=== PATIENT | male | born 1945 | race Caucasian/White ===

== ENCOUNTER 2019-06-10 09:21 | Day surgery (SDC) | payer OTHER ==
[2019-05-31 11:18] LABS: URINE BILIRUBIN NEGATIVE (Negative); URINE BLOOD NEGATIVE (Negative); URINE CLARITY CLEAR; URINE COLOR YELLOW; URINE GLUCOSE-RANDOM* NEGATIVE (Negative); URINE KETONES NEGATIVE (Negative); URINE LEUKOCYTES-REFLEX NEGATIVE (Negative); URINE NITRITE-REFLEX NEGATIVE (Negative); URINE PROTEIN (DIPSTICK) NEGATIVE (Negative)
[2019-05-31 11:19] LABS: HEMOGLOBIN 14.8 gm/dL (14.0-18.0); MCH 29.4 pg (26.0-34.0); MCHC 33.7 g/dL (28.0-37.0); MCV 87.3 fL (80.0-100.0); RBC 5.04 mil/uL (4.50-6.00); RDW 13.1 % (10.5-14.5); WBC 7.1 thou/uL (4.0-11.0)
[2019-05-31 11:48] LABS: ALBUMIN 4.1 g/dL (3.4-5.0); CALCIUM 9.2 mg/dL (8.5-10.1); POTASSIUM 4.4 mmol/L (3.5-5.1)
[2019-06-01 00:09] LABS: GLYCOHEMOGLOBIN (HGB A1C) 7.2 % (4.8-5.6)
[~2019-06-10] VITALS: Ht 177.8 cm; Wt 91.6 kg
[~2019-06-10 09:21] MED LIST: ALTACE2.5 MG PO; ASA81BEC PO; CRESTOR5 MG PO; GLUCOPHAGE XR750 M1 PO; LANTUS SUBQ; OZEMPIC0.25 MG/0. SUBQ; PLAVIX 75 MG TA75 MG PO; PROTONIX40 M2 PO; RAMIPRIL2.5 MG PO; TOPROL XL25 MG PO; VITAMIN D325 MC2 PO; ZETIA10 MG PO
[2019-06-10 10:30] VITALS: BP 141/85
[2019-06-10 16:07] VITALS: BP 119/79
[2019-06-10 19:20] VITALS: BP 90/58
--- NOTE | 2019-06-11 04:54 | NUR ---
ASSESSMENT COMPLETED.PT C/O PAIN ON HIS R KNEE,MANAGED WITH MED X1.PT UP TO THE BR TO VOID.PT ABLE TO REPOSITION SELF IN BED.PT'S REQUESTED FOR PT TO SLEEP WITH CPAP,RT NOTIFIED,PT REF THE CPAP WHEN RT CAME BY.PT ON 2.5L/NC.PT RESTING COMFORTABLY ON HIS BED AT THIS TIME.FALL PRECAUTIONS IN PLACE,CALL LIGHT WITHIN REACH.
[2019-06-11 05:13] VITALS: BP 100/61
[2019-06-11 06:28] LABS: ABSOLUTE NEUTROPHILS 5.1 thou/uL (1.4-8.2); BASOPHILS 0.1 % (0.0-2.0); EOSINOPHILS 1.1 % (0.0-3.0); HEMATOCRIT 36.4 % (42.0-52.0); HEMOGLOBIN 12.2 gm/dL (14.0-18.0); LYMPHOCYTES 5.5 % (24.0-44.0); MCH 29.6 pg (26.0-34.0); MCHC 33.6 g/dL (28.0-37.0); MCV 88.2 fL (80.0-100.0); MONOCYTES 3.7 % (1.0-8.0); PLATELET COUNT 199 thou/uL (150-400); POLYS 89.6 % (36.0-66.0); RBC 4.13 mil/uL (4.50-6.00); RDW 13.8 % (10.5-14.5); WBC 5.7 thou/uL (4.0-11.0)
[2019-06-11 06:39] LABS: CALCIUM 7.8 mg/dL (8.5-10.1); CREATININE 0.9 mg/dL (0.7-1.3); MAGNESIUM 1.8 mg/dL (1.8-2.4); POTASSIUM 3.7 mmol/L (3.5-5.1)
[2019-06-11 07:43] VITALS: BP 107/66
[2019-06-11] MEDS ORDERED: NEURONTIN 300300 M1 PO (09:34)
--- NOTE | 2019-06-11 09:42 | NUR ---
PT CARE ASSUMED AT 0700. A&Ox4. PT EDUCATION GIVEN ABOUT MEDICATION ON BOARD. PT UP WITH GAITBELT AND A WALKER. EDUCATION GIVEN ABOUT ROXANNA DERSSING AND POLAR PACK. ROXANNA DRESSSING INTACT WITH NO DRAINAGE. WHITNEY, SCD'D, DIOGENES HOSES IN PLACE. PT REFUSED PLAVIX, AND HELD METROPROLOL DUE TO LOW BP. SEE CHART. PATIENT SEEN BY PT. ACHS WITH COVERAGE NEEDED. FALL PROTOCOLL IN PLACE. CALL LIGHT IN REACH. OUTPATIENT STATUS. DISCHARGE PENDING PT EVALUATION. NEEDS WALKER. CASE MANAGEMENT INFORMED. WILL CONTINUE TO MONITOR.
[2019-06-11 09:56] VITALS: BP 107/66
--- NOTE | 2019-06-11 14:23 | NUR ---
PT ADMITTED RELATED TO RT PARTIAL KNEE REPLACEMENT. CM REVIEWED CHART AND SPOKE WITH CARE TEAM. CM MET WITH PT AT BEDSIDE THIS DAY. PT IS A&O X4. CM ROLE INTORDUCED. PT INDICATED HE LIVES IN A HOUSE WITH IS SPOUSE WITH 8 STEPS TO ENTER AND 7 STEPS INSIDE. 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 PT INDICATED HE NEEDED A FWW FOR USE UPON DC. CM SENT ORDER TO [facility] PT HAD [employer]. FWW TO BE DELIVERED. PT INDICATED HE HAD AN OUTPATIENT PT APPOINTMENT SCHEDULED FOR MONDAY AT [facility]. PT'S PCP IS DR. LUCIE GUZMAN AT [facility]. IT IS ANTICPATED THAT PT WILL DISCHARGE HOME WITH FWW FROM [facility] AND OP PT AT [facility] THIS DAY. NO OTHER CM INTERVENTION INDICATED. CASE CLOSED.
--- NOTE | 2019-06-12 15:24 | O ---
[address] [address] OPERATIVE REPORT Name: TEN BOND Room #: DE[facility] M.R.#: [id number] Admission: 06/10/19 Attend Phys: Eliseo Wilde MD Discharge: 06/11/19 Date of : 45 Report #: [id number] THIS REPORT FOR: cc: FAM - Family physician unknown FAM - Family physician unknown Eliseo Wilde MD ~ CC: [facility] unknown LUCIE Wilde DATE OF SERVICE: 06/10/2019 PREOPERATIVE DIAGNOSIS: Right knee medial compartment osteoarthritis. POSTOPERATIVE DIAGNOSIS: Right knee medial compartment osteoarthritis. PROCEDURE: Right medial compartment knee arthroplasty using Navio robotic timber management assistant. SURGEON: Eliseo Wilde MD TRADESHOW WORKER: Sydney Gonzalez PA-C INDICATIONS FOR TRADESHOW WORKER: Throughout the case, extensive retraction and manipulation of the knee was required. This was afforded to me by my timber management assistant. ANESTHESIA: LMA with an adductor canal block. IMPLANTS: Rayo and Nephew size 6 Journey II Oxinium medial femoral component, a size 4 tibial component and size 10 polyethylene. TOURNIQUET TIME: 44 minutes. ESTIMATED BLOOD LOSS: 25 mL. COMPLICATIONS: None. SPECIMENS: None. CONDITION UPON LEAVING THE OPERATING ROOM: Stable. INDICATIONS FOR PROCEDURE: The patient is a 74-year-old gentleman with severe right knee medial compartment osteoarthritis. He has failed conservative measures for this and after discussion with him, he elected for right medial compartment knee arthroplasty. [address] [place] [address] OPERATIVE REPORT Name: TEN BOND Room #: DEP [facility] MBibi.#: [id number] Admission: 06/10/19 Attend Phys: Eliseo Wilde MD Discharge: 06/11/19 Date of : 45 Report #: [id number] DESCRIPTION OF PROCEDURE: Risks, benefits, alternatives and complications were discussed in detail with the patient including, but not limited to risk of anesthesia, risk of damage to nerves, arteries, blood vessels, risk for infection, bleeding, risk for continued knee pain, need for reoperation. Informed consent was obtained from the patient. Right knee was appropriately marked in the preoperative holding area. IV Ancef was given for preoperative antibiotics. Adductor canal block was placed by anesthesia. He was brought to the operating room and placed in supine position on operating room table. LMA anesthesia was induced without complication. Tourniquet was placed on the right thigh. Right lower extremity was prepped and draped in normal sterile fashion. Timeout was performed properly identifying the patient and procedure as well as the instrumentation and implants. All in the operating room were in agreement. Right lower extremity was exsanguinated, tourniquet was inflated. Tourniquet time was 44 minutes. Standard approach to the medial knee was made with 10 blade through the skin. Dissection was taken down sharply to the fascia and deep flaps were developed medially and laterally. Fresh 10 blade was used to make a medial parapatellar arthrotomy and the knee was inspected. There was severe medial compartment osteoarthritis. Lateral compartment was well maintained. ACL was intact. 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 It was decided to proceed with medial compartment knee arthroplasty. Reference pins were placed in the femur and the tibia. The knee was digitally mapped using the [employer] robotic system. Intraoperative plan was made and we sized the size 6 femur with a size 4 tibia and size 10 spacer. After acceptance of the intraoperative plan, the femoral and tibial resections were made with a Navio bur. Rasp was used to clean off the tibial plateau. The tibia was sized and found to be a size 4. Size 4 tibial trial was pinned and drilled. A size 6 femoral trial was placed. This was then trialed with a size 9 and then a size 10 polyethylene and a size 10 polyethylene demonstrated 1 to 1.5 laxity medially throughout range of motion. Trial components were removed. Bony ends were thoroughly irrigated with normal saline. A final size 4 tibia, size 6 Journey Oxinium medial femoral component were cemented in place using standard cementation techniques. While the cement cured, a periarticular injection consisting of morphine, ropivacaine, epinephrine and Toradol was placed around the knee joint capsule. After the cement cured, the tourniquet was deflated. Hemostasis was obtained with Bovie cautery. Final size 10 polyethylene was placed. A gram of vancomycin was placed deep in the joint. The fascia was closed with 0 Vicryl, skin was closed with 2-0 Vicryl, zach and a ROXANNA dressing was applied. The patient tolerated this procedure well and went to recovery room under care of anesthesia postoperatively. <ELECTRONICALLY SIGNED> By: Eliseo Wilde MD 06/12/19 [id number] Eliseo Wilde MD /nt
== END 2019-06-11 11:57 | disposition home or self-care (01) ==
LOC: OR 09:21 → TBA 09:22 → OR 09:48 → 4S 14:56 → OR 16:46 → ENTRNSPT 06-11 11:45 → EDTRNSPTSTS 06-11 11:48 → OR 06-11 11:57
PROVIDERS: Nurse Practitioner; Orthopaedic Surgery
DX: M17.11 Unilateral primary osteoarthritis, right knee (principal); M25.561 Pain in right knee; I10 Essential (primary) hypertension; E78.00 Pure hypercholesterolemia, unspecified; I25.2 Old myocardial infarction; E11.9 Type 2 diabetes mellitus without complications; K21.9 Gastro-esophageal reflux disease without esophagitis; G47.30 Sleep apnea, unspecified; Z79.4 Long term (current) use of insulin; Z98.890 Other specified postprocedural states; Z79.899 Other long term (current) drug therapy; Z79.82 Long term (current) use of aspirin
CPT/HCPCS: 10102; 50010; 50101; 50415; 50954; 51130; 51225; 51320; 51412; 52001; 52282; 53078; 53370; 54118; 56527; 56528; 57095; 57103; 57110; 57127; 57180; 62110; 62900; 70005